=== PATIENT | male | born 1930 | race Caucasian/White ===

== ENCOUNTER → 2020-02-03 | Emergency (ER) | payer MEDICARE, OTHER ==
[~2020-02-03] MED LIST: MORPHINE SULFATE 4 MG/ML SYR/VIAL IV ONE; PROMETHAZINE HCL 25 MG/ML 1ML IV PRN; SODIUM CHLORIDE 0.9% 1,000 ML IV ONE; cefTRIAXone 1GM/50ML D5W 50 ML IV ONE
[2020-02-03 11:08] LABS: Basophils # (auto) 0.1 10 ^3/uL (0-0.2); Basophils % (auto) 0.5 % (0.0-2.0); Eosinophils # (auto) 0 10 ^3/uL (0-0.8); Eosinophils % (auto) 0.4 % (0.0-7.0); Hemoglobin 10.1 g/dL (13.5-17.5); Lymphocytes # (auto) 0.9 10 ^3/uL (0.4-5.4); Lymphocytes % (auto) 8.3 % (10.0-50.0); Mean Corpuscular Hemoglobin 30.2 pg (28.0-32.0); Mean Corpuscular Hgb Conc. 32.6 g/dL (32.0-36.0); Mean Corpuscular Volume 92.9 fL (80.0-100.0); Monocytes # (auto) 0.7 10 ^3/uL (0-1.3); Monocytes % (auto) 6.6 % (0.0-12.0); Neutrophils % (auto) 84.2 % (37.0-80.0); Platelet Count (auto) 381 10^3/uL (140-450); Red Blood Cells 3.34 10^6/uL (4.5-5.90); Red Cell Distribution Width 16.6 % (11.8-14.3); White Blood Cell 10.6 10^3/uL (4.4-10.8)
[2020-02-03 11:20] LABS: Potassium 3.6 mmol/L (3.5-5.1)
[2020-02-03 11:30] LABS: Albumin 1.9 g/dL (3.4-5.0); BUN/Creatinine Ratio 44.9; Bilirubin, Total 0.2 mg/dL (0.2-1.0); Magnesium 2.6 mg/dL (1.6-2.6); Total Protein 7.1 g/dL (6.4-8.2)
[2020-02-03 14:15] LABS: Urine Bacteria MOD /hpf (None Seen); Urine Blood 3+ /uL (Negative); Urine Specific Gravity 1.019 (1.001-1.035); Urine WBC 2771 /hpf (0 - 3); Urine WBC Clumps PRESENT /hpf (None Seen)
[2020-02-03 15:55] VITALS: BP 126/81
== END | disposition home or self-care (01) ==
LOC: EDBD 09:04 → ER 09:04
DX: T85.598A Other mechanical complication of other gastrointestinal prosthetic devices, implants and grafts, initial encounter (principal); E11.21 Type 2 diabetes mellitus with diabetic nephropathy; C80.0 Disseminated malignant neoplasm, unspecified; C16.0 Malignant neoplasm of cardia; N39.0 Urinary tract infection, site not specified; E43 Unspecified severe protein-calorie malnutrition; J18.9 Pneumonia, unspecified organism; J45.909 Unspecified asthma, uncomplicated; I10 Essential (primary) hypertension; Y83.9 Surgical procedure, unspecified as the cause of abnormal reaction of the patient, or of later complication, without mention of misadventure at the time of the procedure; Y92.89 Other specified places as the place of occurrence of the external cause
CPT/HCPCS: 36415; 43762; 71045; 74176; 80053; 81001; 83690; 83735; 85025; 96365; 96375; 99285; J0696; J2270; J2550; J7030; J7040